=== PATIENT | female | born 1985 | race American Indian/Alaskan Native ===

== ENCOUNTER 2019-03-03 11:51 | Emergency (ER) | payer SELFPAY ==
--- NOTE | 2019-03-03 11:58 | Emergency Department Report ---
Blank Doc - Documentation Documentation: 34-year-old female that presents with left neck intermittnent enlarged lymph n ode x1 year and started to have vaginal discharge and itching. This initial assessment/diagnostic orders/clinical plan/treatment(s) is/are subject to change based on patient's health status, clinical progression and re- assessment by fellow clinical providers in the ED. Further treatment and workup at subsequent clinical providers discretion. Patient/guardians urged not to elope from the ED as their condition may be serious if not clinically assessed and managed. Initial orders include: 1- Patient sent to [facility] for further evaluation and treatment 2- UA 3- pelvic exam to be done
[2019-03-03 12:00] VITALS: BP 111/54
[2019-03-03 12:26] LABS: Bilirubin,Urine NEG (Negative); Blood,Urine NEG (Negative); Color,Urine Yellow (Yellow); Mucus,Urine 2+ /HPF; Protein,Urine <15 mg/dL mg/dL (Negative); Urobilinogen,Urine < 2.0 mg/dL (<2.0)
[2019-03-03 12:31] LABS: HCG Qualitative,Urine Negative (Negative)
--- NOTE | 2019-03-03 13:49 | Emergency Department Report ---
ED Female HPI - General Chief complaint: Neck Pain/Injury Stated complaint: NECK PAIN Time Seen by Provider: 03/03/19 11:55 Source: patient Mode of arrival: Ambulatory Limitations: No Limitations - History of Present Illness Initial comments: Patient is a 34-year-old female presents to the emergency room with complaints of vaginal itching for 2 months. States that she has white vaginal discharge without odor. She denies any dysuria, nausea, vomiting, diarrhea, fever, abdominal pain. She states she has sexually active and does not use protection. She states she has concern for STDs. last menstrual cycle was February 15. She denies any past medical history or allergies medications. pt also presents to the ED with c/o a small lump to the left neck for 1 year. she denies any pain, fever, chills, unexplained weight loss or any other symptoms. - Related Data Previous Rx's Medication Instructions Recorded Last Taken Type metroNIDAZOLE [Flagyl] 500 mg PO BID 7 Days #14 tab 03/03/19 Unknown Rx Allergies Allergy/AdvReac Type Severity Reaction Status Date / Time No Known Allergies Allergy Unverified 03/03/19 11:54 ED Review of Systems ROS: Stated complaint: NECK PAIN Other details as noted in HPI Comment: All other systems reviewed and negative ED Past Medical Hx - Past Medical History Previous Medical History?: No - Surgical History Additional Surgical History: c sect x 2 - Social History Smoking Status: Never Smoker Substance Use Type: None - Medications Home Medications: Home Medications Medication Instructions Recorded Confirmed Last Taken Type metroNIDAZOLE [Flagyl] 500 mg PO BID 7 Days #14 tab 03/03/19 Unknown Rx ED Physical Exam - General Limitations: No Limitations General appearance: alert, in no apparent distress - Head Head exam: Present: atraumatic, normocephalic - Eye Eye exam: Present: normal appearance - ENT ENT exam: Present: mucous membranes moist - Neck Neck exam: Present: lymphadenopathy (very small anterior cervical LAD, non tender, easily moveable ) - Respiratory Respiratory exam: Present: normal lung sounds bilaterally. Absent: respiratory distress, wheezes, rales, rhonchi, stridor, chest wall tenderness, accessory muscle use, decreased breath sounds, prolonged expiratory - Cardiovascular Cardiovascular Exam: Present: regular rate, normal rhythm, normal heart sounds. Absent: systolic murmur, diastolic murmur, rubs, gallop - GI/Abdominal GI/Abdominal exam: Present: soft, normal bowel sounds. Absent: distended, tenderness, guarding, rebound, rigid - External exam: Present: normal external exam. Absent: erythema, swelling, lesions, lacerations, ecchymosis, bleeding Speculum exam: Present: vaginal discharge (thick/white), cervical discharge (thick/white), other (laborer demolition: AMY vogel). Absent: erythema, vaginal bleeding, foreign body, tissue, laceration Bi-manual exam: Present: normal bi-manual exam. Absent: cervical motion tendernes, adnexal tenderness, adnexal mass - Back Exam Back exam: Absent: CVA tenderness (R), CVA tenderness (L) - Neurological Exam Neurological exam: Present: alert, oriented X3 - Psychiatric Psychiatric exam: Present: normal affect, normal mood - Skin Skin exam: Present: warm, dry, intact ED Course Vital Signs 03/03/19 11:55 Temperature 97.9 F Pulse Rate 68 Respiratory 18 Rate Blood Pressure 111/54 O2 Sat by Pulse 100 Oximetry ED Medical Decision Making - Medical Decision Making Patient is a 34-year-old female presents to the emergency room with complaints of vaginal itching for 2 months. States that she has white vaginal discharge without odor. She denies any dysuria, nausea, vomiting, diarrhea, fever, abdominal pain. She states she has sexually active and does not use protection. She states she has concern for STDs. last menstrual cycle was February 15. She denies any past medical history or allergies medications. pt also presents to the ED with c/o a small lump to the left neck for 1 year. she denies any pain, fever, chills, unexplained weight loss or any other symptoms. VSS. on exam: very small anterior cervical LAD, non tender, easily moveable, thick/white vaginal discharge, no CMT, no adnexal tenderness/masses, no abd tenderness. wet prep with bacterial vaginosis and many polymorphonuclear cells. G/C swab sent. given ceftriaxone and azithromycin prophylactically for G/C. pt given prescription for flagyl. advised pt to please take medication as prescribed. Do not drink alcohol while taking medication. please go to medical records in 1 week for results of your tests. Please have any partner tested and treated as well. Abstain from sexual intercourse for 10 days. please be seen by the health department or an CALENDER INSPECTOR for further STD testing. Please be seen by a general surgeon due to your lymph node that you have had for a year. Return to the emergency room for any new or worsening symptoms. - Differential Diagnosis UTI, STD, vaginitis, BV, yeast Critical care attestation.: If time is entered above; I have spent that time in minutes in the direct care of this critically ill patient, excluding procedure time. ED Disposition Clinical Impression: Bacterial vaginosis, Vaginal discharge, LAD (lymphadenopathy), cervical Disposition: TO HOME OR SELFCARE Is pt being admited?: No Does the pt Need Aspirin: No Condition: Stable Instructions: Bacterial Vaginosis (ED), Sexually Transmitted Diseases (ED), Safe Sex (ED), Lymphadenopathy (ED) Additional Instructions: Please take medication as prescribed. Do not drink alcohol while taking medication. please go to medical records in 1 week for results of your tests. Please have any partner tested and treated as well. Abstain from sexual intercourse for 10 days. please be seen by the health department or an CALENDER INSPECTOR for further STD testing. Please be seen by a general surgeon due to your lymph node that you have had for a year. Return to the emergency room for any new or worsening symptoms. Prescriptions: metroNIDAZOLE [Flagyl] 500 mg PO BID 7 Days #14 tab Referrals: [facility] [Outside] - 2-3 Days ESTELA HERNÁNDEZ MD [Staff Physician] - 2-3 Days SCAR FERNANDO MD [Staff Physician] - 2-3 Days Forms: STI Treatment and Prevention Time of Disposition: 15:52 Print Language: SYRIAN
[2019-03-03] MEDS ORDERED: AZITHROMYCIN 1 GM ORAL PWDR PACKET PO ONE (14:25)
[2019-03-03] MEDS ORDERED: LIDOCAINE-MPF (1%) 10 MG/1 ML VIAL 5 ML INFILTRATI ONE (14:25)
== END 2019-03-03 16:09 | disposition home or self-care (01) ==
LOC: ED 11:51
DX: N76.0 Acute vaginitis (principal); B96.89 Other specified bacterial agents as the cause of diseases classified elsewhere; R59.1 Generalized enlarged lymph nodes; M54.2 Cervicalgia; Z79.899 Other long term (current) drug therapy
CPT/HCPCS: 81001; 81025; 87210; 87591; 96372; 99283; J0696

== ENCOUNTER 2020-03-05 07:41 | Emergency (ER) | payer SELFPAY ==
--- NOTE | 2020-03-05 10:22 | Emergency Department Report ---
ED ENT HPI - General Chief complaint: Dental/Oral Stated complaint: TOOTHACHE Time Seen by Provider: 03/05/20 10:05 Source: patient Mode of arrival: Ambulatory Limitations: No Limitations - History of Present Illness Initial comments: This is a 35-year-old female nontoxic well in appearance with no signs of distress presents to the ED with complaint of acute on chronic toothache x several years. Patient denies any facial swelling. Denies following up with a dentist. Denies any fever, chills, headache, nausea, vomiting, chest pain or SOB. Denies any other complaints. Denies any allergies. MD complaint: tooth pain -: year(s) Location: tooth # 1 - pain here Severity: mild Severity scale (0 -10): 3 Quality: aching Consistency: constant Improves with: none Worsens with: none Context- Dental: history of dental caries, poor dental care Associated Symptoms: toothache. denies: fever, cough, gum swelling, pain with swallowing, sore throat, tinnitus, hearing loss, discharge from ear, rhinorrhea - Related Data Previous Rx's Medication Instructions Recorded Last Taken Type metroNIDAZOLE [Flagyl] 500 mg PO BID 7 Days #14 tab 03/03/19 Unknown Rx Allergies Allergy/AdvReac Type Severity Reaction Status Date / Time No Known Allergies Allergy Unverified 03/03/19 11:54 ED Dental HPI - General Chief complaint: Dental/Oral Stated complaint: TOOTHACHE Time Seen by Provider: 03/05/20 10:05 Source: patient Mode of arrival: Ambulatory Limitations: No Limitations - Related Data Previous Rx's Medication Instructions Recorded Last Taken Type metroNIDAZOLE [Flagyl] 500 mg PO BID 7 Days #14 tab 03/03/19 Unknown Rx Allergies Allergy/AdvReac Type Severity Reaction Status Date / Time No Known Allergies Allergy Unverified 03/03/19 11:54 ED Review of Systems ROS: Stated complaint: TOOTHACHE Other details as noted in HPI Comment: All other systems reviewed and negative Constitutional: denies: chills, fever Eyes: denies: eye pain, eye discharge, vision change ENT: dental pain. denies: ear pain, throat pain Respiratory: denies: cough, shortness of breath, wheezing Cardiovascular: denies: chest pain, palpitations Endocrine: no symptoms reported Gastrointestinal: denies: abdominal pain, nausea, diarrhea Genitourinary: denies: urgency, dysuria, discharge Musculoskeletal: denies: back pain, joint swelling, arthralgia Skin: denies: rash, lesions Neurological: denies: headache, weakness, paresthesias Psychiatric: denies: anxiety, depression Hematological/Lymphatic: denies: easy bleeding, easy bruising ED Past Medical Hx - Past Medical History Previous Medical History?: No - Surgical History Past Surgical History?: Yes Additional Surgical History: c sect x 2 - Social History Smoking Status: Never Smoker Substance Use Type: None - Medications Home Medications: Home Medications Medication Instructions Recorded Confirmed Last Taken Type metroNIDAZOLE [Flagyl] 500 mg PO BID 7 Days #14 tab 03/03/19 Unknown Rx ED Physical Exam - General Limitations: No Limitations General appearance: alert, in no apparent distress - Head Head exam: Present: atraumatic, normocephalic - Eye Eye exam: Present: normal appearance - ENT ENT exam: Present: normal exam, normal orophraynx - Expanded ENT Exam Expanded Ear exam: Present: normal external inspection Mouth exam: Present: normal external inspection, tongue normal. Absent: drooling, trismus, muffled voice Teeth exam: Present: dental caries, dental tenderness #, other (no abscess or swelling). Absent: gingival enlargement Throat exam: Positive: normal inspection, other (uvula midline). Negative: tonsillar erythema, tonsillomegaly, tonsillar exudate, R peritonsillar mass, L peritonsillar mass - Neck Neck exam: Present: normal inspection, full ROM. Absent: tenderness, meningismus, lymphadenopathy - Respiratory Respiratory exam: Absent: respiratory distress - Cardiovascular Cardiovascular Exam: Present: regular rate - Extremities Exam Extremities exam: Present: full ROM - Back Exam Back exam: Present: full ROM - Neurological Exam Neurological exam: Present: alert, oriented X3, normal gait - Psychiatric Psychiatric exam: Present: normal affect, normal mood - Skin Skin exam: Present: warm, dry, intact, normal color. Absent: rash ED Course Vital Signs 03/05/20 07:58 Temperature 98.2 F Pulse Rate 80 Respiratory 20 Rate Blood Pressure 117/71 O2 Sat by Pulse 98 Oximetry - Reevaluation(s) Reevaluation #1: 03/05/20 10:20 Patient is speaking in full sentences with no signs of distress noted. ED Medical Decision Making - Medical Decision Making This is a 35-year-old female that presents with chronic toothache. Patient is stable. VSS. Patient was told OTC treatment and to seek dental follow-up. Patient has received several resources with a form that has dental clinics in [place]. No abscess or emergency condition present in the ED during todays visit. Patient was instructed to Follow-up with a dental doctor in 3-5 days or if symptoms worsen and continue return to emergency room as soon as possible. At time of discharge, the patient does not seem toxic or ill in appearance. No acute signs of distress noted. Patient agrees to discharge treatment plan of care. No further questions noted by the patient. Critical care attestation.: If time is entered above; I have spent that time in minutes in the direct care of this critically ill patient, excluding procedure time. ED Disposition Clinical Impression: Toothache Disposition: Z-07 MED SCREENING EXAM-LEFT Is pt being admited?: No Does the pt Need Aspirin: No Condition: Stable Instructions: Toothache (ED) Additional Instructions: Follow-up with a dental doctor in 3-5 days or if symptoms worsen and continue return to emergency room as soon as possible. Referrals: [facility] [Referring] - 3-5 Days EVA SKINNER MD [Staff Physician] - 3-5 Days [facility] [Outside] - 3-5 Days
[2020-03-05 10:47] VITALS: BP 138/78
== END 2020-03-05 10:46 | disposition left against medical advice (07) ==
LOC: ED 07:41
DX: K08.89 Other specified disorders of teeth and supporting structures (principal); Z53.21 Procedure and treatment not carried out due to patient leaving prior to being seen by health care provider